=== PATIENT | female | born 1985 | race African-American/Black ===

== ENCOUNTER 2019-07-23 19:40 | Emergency (ER) | payer SELFPAY ==
[2019-07-23 19:41] VITALS: BP 116/82; PULSE 81; RESP 18; TEMP 36.6; O2SAT 100; BMI 40.7
--- NOTE | 2019-07-23 20:01 | EKG12_ITS ---
Test Reason : CP Blood Pressure : / mmHG Vent. Rate : 083 BPM Atrial Rate : 083 BPM P-R Int : 178 ms QRS Dur : 086 ms QT Int : 382 ms P-R-T Axes : 047 001 042 degrees QTc Int : 448 ms Normal sinus rhythm Normal ECG Confirmed by GALA DONOHUE, CURTIS ([id number]), photograph editor MAGDA QUINTERO ([id number]) on 07/24/2019 1:47:50 PM Referred By: KIMBERLY Confirmed By:CURTIS CEDEÑO MD
--- NOTE | 2019-07-23 20:03 | ED.DCSUM_ITS ---
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 States the last 20 minutes she has had fluttering in her chest and mild discomfort. Denies dyspnea. Denies nausea. Never had a DVT or PE. No recent travel or surgery. No recent immobilization. No calf pain or swelling. No hemoptysis. She is on no control pills. There is no significant family history of cardiac disease at a young age. Or clotting disorder. Physical Examination: Young female no acute distress vital signs are stable and afebrile. Pulse ox 9% on room air no signs hypoxia. Initial blood pressure 116/82. HEENT exam normal. Neck nontender. Lungs clear to auscultation bilaterally. Heart regular rhythm no murmur rate about 80. Chest wall nontender. Abdomen soft nontender normal bowel sounds no peritoneal signs. Extremities moves all 4. Equal symmetrical radial pulses. Calves are nontender without edema or cords. Normal motor strength both upper and lower extremities. Back nontender. Neurologically she is awake and alert with no focal motor deficits. Test Results: EKG shows a normal sinus rhythm rate 83 with no acute signs of IN or ischemia. No S1Q3T3. BC normal. Chemistries normal. Troponin normal. Chest x-ray portable 1 view no acute abnormality. Normal cardiac silhouette mediastinum. Read both by myself and the radiologist. Emergency Department Course and Treatment: Patient undergo a cardiac work-up. Clinically I do not think this is a blood clot nor do I think its cardiac in etiology. Repeat exam patient is doing well at 2115. All her tests were negative. We went over her test results. She will follow-up as an outpatient. Treatment Plan: Tylenol and/or Motrin for pain. Follow-up with her physician Disposition: discharge Impression: Chest pain uncertain etiology This note was generated with [employer] dictation software. It may contain incorrect words, spelling, and punctuation that were not noted in review of the chart prior to signing
--- NOTE | 2019-07-23 20:05 | ED.RN ---
NO OLD EKGS IN MUSE
--- NOTE | 2019-07-23 20:10 | RAD_ITS ---
HISTORY: CHEST PAIN EXAM: XR Chest 1 View: COMPARISON: None FINDINGS: # of images incl. paperwork: 1 Lungs are clear. Heart is not enlarged. No acute osseous pathology perceived. Pulmonary vascularity is distinct. No effusions. RAD/Chest 1 View (Portable) IMPRESSION: Normal. at 2032 Reported and signed by: Calvin Otero MD Electronically Signed: Calvin Otero MD at 20:31 EDT Tel , Service support ,
[2019-07-23 20:29] LABS: Absolute Lymphocyte Count 3.08 X10^3/uL (0.83-4.51); Absolute Neutrophil Count 5.2 X10^3/uL (2.0-7.7); Basophil# 0.04 X10^3/uL; Basophil% 0.4 % (0-1); Eosinophil# 0.06 X10^3/uL; Eosinophils% 0.7 % (0-5); Hematocrit 37.5 % (37-47); Hemoglobin 12.7 g/dL (12.0-15.0); Lymphocyte # 3.08 X10^3/ul (4.0); Lymphocyte % 34.3 % (19-41); Mean Corp Hgb Conc 33.9 g/dL (32-36); Mean Corpuscular Hgb 31.4 pg (27.0-32.0); Mean Corpuscular Volume 92.6 fL (81-99); Mean Platelet Vol. 8.5 fl (6.2-12.0); Monocyte# 0.56 X10^3/uL; Monocyte% 6.2 % (0-10); NRBC Flagged by Analyzer 0 % (0-5); Neutrophil # 5.22 X10^3/uL (2.7-7.7); Neutrophil % 58.2 % (47-70); Platelet Count 358 K/mm3 (150-450); RBC Distribution Width CV 12.4 % (11.6-14.6); RBC Distribution Width SD 42.3 fl (35.1-43.9); Red Blood Count 4.05 M/mm3 (4.2-5.4)
[2019-07-23 20:54] LABS: Anion Gap 6 (5-15); BUN 16 mg/dL (7-18); BUN/Creat Ratio 20.6 RATIO (10-20); Calcium,Total 8.8 mg/dL (8.5-10.1); Chloride 111 mmol/L (98-107); Creatinine, Serum 0.78 mg/dL (0.55-1.02); EST Glomerular Filtration Rate 91 mL/min (>60); Est Glom Filt Rate - Afr Amer 110 mL/min (>60); Estimated Creatinine Clearance 93.17 ml/min; Glucose 89 mg/dL (74-106); Potassium 3.7 mmol/L (3.5-5.1); Sodium Level 140 mmol/L (136-145)
--- NOTE | 2019-07-23 21:17 | ED.DEP ---
ED Disposition - Plan for ED Patient: Disposition: Home or Assisted Living Instructions: CHEST PAIN, Uncertain Cause Referrals: Care Physician,No Primary [Primary Care Provider] - 1 Week if not improving Additional Instructions: All your tests were normal follow-up with your doctor.
[2019-07-23 21:21] VITALS: BP 111/73; PULSE 80; RESP 18; O2SAT 97
== END 2019-07-23 21:22 | disposition home or self-care (01) ==
PROVIDERS: Emergency Provider Emergency Medicine
DX: R07.89 Other chest pain (principal); D49.7 Neoplasm of unspecified behavior of endocrine glands and other parts of nervous system; Z79.899 Other long term (current) drug therapy
CPT/HCPCS: 36415; 71045; 80048; 84484; 85025; 93005; 99285; A4216

== ENCOUNTER 2019-12-03 10:29 | Emergency (ER) | payer SELFPAY ==
[2019-12-03 10:31] VITALS: BP 134/63; PULSE 79; RESP 16; TEMP 36.4; O2SAT 100; BMI 40.7
[2019-12-03 11:06] LABS: Absolute Lymphocyte Count 2.61 X10^3/uL (0.83-4.51); Absolute Neutrophil Count 5.1 X10^3/uL (2.0-7.7); Basophil# 0.03 X10^3/uL; Basophil% 0.4 % (0-1); Eosinophil# 0.08 X10^3/uL; Hemoglobin 12.4 g/dL (12.0-15.0); Lymphocyte # 2.61 X10^3/ul (4.0); Lymphocyte % 31.1 % (19-41); Mean Corp Hgb Conc 34.4 g/dL (32-36); Mean Corpuscular Hgb 31.5 pg (27.0-32.0); Mean Corpuscular Volume 91.4 fL (81-99); Mean Platelet Vol. 9.3 fl (6.2-12.0); Monocyte# 0.53 X10^3/uL; Monocyte% 6.3 % (0-10); NRBC Flagged by Analyzer 0 % (0-5); Neutrophil % 60.6 % (47-70); Platelet Count 367 K/mm3 (150-450); RBC Distribution Width CV 12.9 % (11.6-14.6); RBC Distribution Width SD 42.8 fl (35.1-43.9); Red Blood Count 3.94 M/mm3 (4.2-5.4); White Blood Count 8.4 K/mm3 (4.4-11.0)
[2019-12-03] MEDS: 0.9% Normal Saline 1,000 ML 150 ML IV (11:10)
[2019-12-03 11:19] LABS: Anion Gap 8 (5-15); BUN 18 mg/dL (7-18); BUN/Creat Ratio 24.6 RATIO (10-20); Calcium,Total 8.5 mg/dL (8.5-10.1); Chloride 116 mmol/L (98-107); Creatinine, Serum 0.73 mg/dL (0.55-1.02); EST Glomerular Filtration Rate 97 mL/min (>60); Est Glom Filt Rate - Afr Amer 118 mL/min (>60); Estimated Creatinine Clearance 99.55 ml/min; Glucose 101 mg/dL (74-106); Potassium 3.2 mmol/L (3.5-5.1); Sodium Level 144 mmol/L (136-145)
[2019-12-03 11:28] VITALS: BP 117/77; PULSE 70; RESP 11; O2SAT 100
--- NOTE | 2019-12-03 11:32 | ED.VISSUMM ---
- ER Visit Summary Date of Service: 12/03/19 Chief Complaint: Cough History of Present Illness: The patient is a 34 F with no primary care physician. She reports that she has a cough that began 3 days ago. Is productive of green sputum without blood. She denies any fever or chills. She does report that she has mild shortness of breath. States that this lasts 4 to 5 seconds. She is not experiencing this now. She denies wheezing. She does not smoke. Patient reports that she is very careful when she goes out. She wears a mask. She has been isolating as much as possible. She does not have a known exposure to COVID-19. She reports that she has had diffuse myalgias. She denies any change in sense of smell or taste. She reports she has a chronic headache that is unchanged. Patient relates this to the fact that her septic tank broke 3 days ago and she has been working on cleaning this up. This is when she started getting sick. Physical Examination: Vitals: Stable. Afebrile. General: Well-nourished and well-developed. Head: Normocephalic atraumatic. Neck: Supple, no lymphadenopathy. No JVD. Nontender. Cardiovascular: Regular rate and rhythm. No murmurs. Respiratory: No respiratory distress. Clear to auscultation bilaterally. Abdominal: Soft, nontender, nondistended, normal bowel sounds. No guarding, rebound, or peritoneal signs. Back: Nontender. Extremities: Nontender, no edema. Skin: Normal color, no rash. Neurologic: Alert and oriented ?3. Cranial nerves II through XII are intact. Normal strength and sensation. Psych: Normal affect. Test Results: CBC shows hematocrit 36.0. Chem-7 shows potassium 3.2, chloride 116, CO2 of 20. Clinical Impression(s) from Imaging Studies Chest X-Ray 12/03/19 11:36 IMPRESSION: Normal x-ray examination of the chest. Electronically Signed: Star Ríos MD at 11:51 EDT , Service support , Emergency Department Course and Treatment: Patient is resting comfortably without complaint. Treatment Plan: Patient will be discharged with quarantine instructions. She does understand that this could potentially be COVID-19. Follow-up Dr. Cerda in 2 weeks if not improving. She is also given the phone number for Dr. Srivastava to establish a neurologist in the area. Return to the emergency department for any worsening symptoms. Disposition: To home in improved and stable condition. Impression: 1. URI. 2. History of pseudotumor cerebri. This note was generated with [employer] dictation software. It may contain incorrect words, spelling, and punctuation that were not noted in review of the chart prior to signing ED Disposition - Plan for ED Patient: Instructions: ED Upper Resp Infec No Abx Tx Referrals: Dalton Srivastava MD [STAFF PHYSICIAN] - 10-14 Days if not better Varsha Cerda DO [STAFF PHYSICIAN] - 10-14 Days if not better
--- NOTE | 2019-12-03 11:36 | RAD_ITS ---
STUDY: X-RAY CHEST REASON FOR EXAM: Female, 34 years old. SHORT OF BREATH, COUGH TECHNIQUE: PA and lateral views of the chest. COMPARISON: 07/23/2019 FINDINGS: EKG leads overlie the chest The lungs are clear and expanded. There is no demonstrated pleural abnormality. Normal size heart. Normal mediastinum and lamin. Normal visualized pulmonary arteries. Normal visualized aortic arch and descending thoracic aorta. Normal visualized thoracic spine. Normal visualized ribs, clavicles, and shoulders. There is no demonstrated abnormality of the visualized soft tissue structures of the upper abdomen. RAD/Chest PA and Lateral IMPRESSION: Normal x-ray examination of the chest. Electronically Signed: Star Ríos MD at 11:51 EDT , Service support ,
== END 2019-12-03 12:56 | disposition home or self-care (01) ==
LOC: ED 12:01
PROVIDERS: Emergency Provider Emergency Medicine
DX: J06.9 Acute upper respiratory infection, unspecified (principal); R06.02 Shortness of breath; R11.2 Nausea with vomiting, unspecified; R19.7 Diarrhea, unspecified; G93.2 Benign intracranial hypertension
CPT/HCPCS: 71046; 80048; 85025; 87635; 96360; 96361; 99284; G2023; J7030; A4216; U0003

== ENCOUNTER 2020-04-29 10:08 | Emergency (ER) | payer SELFPAY ==
[2020-04-29 10:11] VITALS: BP 150/135; PULSE 79; RESP 16; TEMP 36.6; O2SAT 100; BMI 39.6
--- NOTE | 2020-04-29 10:33 | EKG12_ITS ---
Test Reason : SOB Blood Pressure : / mmHG Vent. Rate : 097 BPM Atrial Rate : 097 BPM P-R Int : 162 ms QRS Dur : 088 ms QT Int : 394 ms P-R-T Axes : 038 004 033 degrees QTc Int : 500 ms Normal sinus rhythm Nonspecific T wave abnormality Prolonged QT Abnormal ECG Confirmed by SIRISHA DONOHUE, SHELLY ([id number]), health editor ROHAN MAI ([id number]) on 05/07/2020 10:01:22 AM Referred By: ELOY/SEVERO Confirmed By:MARIA LUISA GRIMM MD
--- NOTE | 2020-04-29 10:34 | ED.DCSUM_ITS ---
History of Present Illness Chief Complaint: Shortness of Breath Informant: Patient Narrative: Patient is a 35-year-old female with a past medical history of pseudotumor cerebri who presents to the emergency department for shortness of breath. She states that this has been ongoing intermittently for years but never has been this bad. Over the past week she is becoming increasingly short of breath and she gets worse whenever she takes her Diamox. Stop this cold turkey because of this. She did contact her doctor to let them know and they said that this is most likely not from the Diamox. He does get a chest tightness but denies any significant chest pain. She has had a baseline cough without production of any sputum. No fevers or chills. She has any nausea vomiting or diarrhea. No leg swelling or calf pain. She denies any history of DVT/PE. No history of lung problems. Past Medical History - Allergies and Home Meds Allergies/Adverse Reactions: Allergies DUST Allergy (Uncoded 12/03/19 10:30) Shortness of breath Primary Care Physician: Care Physician,No Primary [Primary Care Provider] - As soon as possible Prior records reviewed: Yes Smoking Status: Current some day smoker Review of Systems All systems negative except as indicated General: Denies: Chills, Fever, Sweats Eyes: Denies: Visual changes - bilaterally, Diplopia ENT: Denies: Rhinorrhea, Sore throat Cardiovascular: Denies: Chest pain, Palpitations Respiratory: Reports: Dyspnea, Cough. Denies: Dyspnea on exertion Gastrointestinal: Denies: Abdominal pain, Nausea, Vomiting, Diarrhea Genitourinary: Denies: Dysuria, Hematuria, Frequency Musculoskeletal: Denies: Back pain, Extremity Pain Skin: Denies: Rash, Wounds Neurological: Denies: Headache, Weakness, Numbness Physical Exam Vital Signs/Narrative: Vital Signs Temp Pulse Resp BP Pulse Ox 04/29/20 10:11 97.8 F 79 16 150/135 H 100 General: Well nourished, Well developed, No Acute Distress Head: Normocephalic, Atraumatic Eyes: Perrl, EOMI ENT: Moist mucous membranes, No rhinorrhea Neck: Supple, Nontender Cardiovascular: Regular rate, Regular rhythm, No murmurs Respiratory: No distress, CTA bilaterally, Chest nontender Abdomen: Soft, Nontender, Nondistended, Normal bowel sounds Back: Nontender, Normal Inspection Extremities: Nontender, No edema. Negative for: Calf Tenderness Skin: Normal color, No rash Neurological: Alert, Oriented x3, Cranial nerves II-XII grossly intact, Normal Strength, Normal Sensation Psychological: Normal affect, Normal Mood Diagnostic/Tx/Re-eval Chest X-Ray - ED: - - X-ray single view portable interpreted by myself. Clear lung graham bilaterally. No evidence of consolidation. Normal cardiac silhouette. Normal mediastinum. Agree with radiologist interpretation. - EKG Initial EKG Interpretation: - - Rate of 97 bpm and normal sinus rhythm. QTC of 500. Normal axis. No significant ST elevations or depressions. No T wave abnormalities. - Medical Decision Making Patient presents to the ED for shortness of breath. Upon arrival to the emergency department vital signs within normal limits. She is not tachycardic. Satting 100% on room air. Does not have any increased work of breathing. She is blaming her Diamox although this started before the Diamox and got worse when taking it. She has stopped taking it because of this. We will check basic lab work, EKG and chest x-ray. Patient's lab work did not reveal a significant acute abnormality except her D- dimer was mildly elevated. CTA was performed. No evidence of PE or aortic dissection. Have a great explanation for the cause of her intermittent shortness of breath. She has not been tachypneic and has never desaturated throughout ED stay. She is requesting albuterol inhaler she is to use this as a child. She states that she has worsening symptoms whenever she smokes marijuana and on days she does not smoke she does feel better. I advised her to stop smoking and see how she feels and if she feels better she should discontinue this indefinitely. She is to follow-up with her PCP. Did advise her to get back on the acetazolamide as prescribed. She understands and is agreeable this plan. She is discharged home in stable condition. ED Disposition - Plan for ED Patient: Disposition: Home or Assisted Living Diagnosis: Dyspnea Instructions: ED Dyspnea Prescriptions: Albuterol Inhaler [Ventolin Hfa] 1 puff INHALATION Q6H PRN PRN #1 inhaler PRN Reason: Dyspnea/Wheezing/Sob Transmission Status: Received by [facility]/pharmacy #[id number] Referrals: Care Physician,No Primary [Primary Care Provider] - As soon as possible
--- NOTE | 2020-04-29 10:51 | RAD_ITS ---
STUDY: X-RAY CHEST REASON FOR EXAM: Female, 35 years old. SOB/DYSPNEA TECHNIQUE: Single AP portable view of the chest. COMPARISON: Comparison is made with prior study dated 12/03/2019. FINDINGS: EKG electrodes are seen. The lungs are clear and expanded. There is no demonstrated pleural abnormality. Normal size heart. Normal mediastinum and lamin. Normal visualized pulmonary arteries. Normal visualized aortic arch and descending thoracic aorta. Normal visualized thoracic spine. Normal visualized ribs, clavicles, and shoulders. There is no demonstrated abnormality of the visualized soft tissue structures of the upper abdomen. RAD/Chest 1 View (Portable) IMPRESSION: Normal x-ray examination of the chest. Electronically Signed: Chema Colin, at 11:15 EST , Service support ,
[2020-04-29 11:15] LABS: Absolute Lymphocyte Count 2.47 X10^3/uL (0.83-4.51); Absolute Neutrophil Count 5.4 X10^3/uL (2.0-7.7); Basophil# 0.04 X10^3/uL; Basophil% 0.5 % (0-1); Eosinophil# 0.06 X10^3/uL; Eosinophils% 0.7 % (0-5); Hemoglobin 12.5 g/dL (12.0-15.0); Lymphocyte # 2.47 X10^3/ul (4.0); Lymphocyte % 29.2 % (19-41); Mean Corp Hgb Conc 33.8 g/dL (32-36); Mean Corpuscular Hgb 31.2 pg (27.0-32.0); Mean Corpuscular Volume 92.3 fL (81-99); Mean Platelet Vol. 9.5 fl (6.2-12.0); Monocyte# 0.46 X10^3/uL; Monocyte% 5.4 % (0-10); NRBC Flagged by Analyzer 0 % (0-5); Neutrophil # 5.41 X10^3/uL (2.7-7.7); Platelet Count 361 K/mm3 (150-450); RBC Distribution Width CV 12.5 % (11.6-14.6); Red Blood Count 4.01 M/mm3 (4.2-5.4); White Blood Count 8.5 K/mm3 (4.4-11.0)
[2020-04-29 11:20] LABS: D-Dimer Quantitative (DVT/PE) 0.67 FEU/ug/m (0.27-0.49)
--- NOTE | 2020-04-29 11:24 | CT_ITS ---
STUDY: CTA CHEST REASON FOR EXAM: Female, 35 years old. SOB X 5 DAYS RADIATION DOSAGE (If Supplied By Facility): CTDIvol = ( 15.04 ) mGy, DLP = ( 541.33 ) mGycm TECHNIQUE: The examination was performed with the intravenous administration of IV 100mL Isovue-370. Post-processing of the angiographic images was performed, with multiplanar reformation and 3D reconstruction. Individualized dose optimization techniques were used for this CT. COMPARISON: None. FINDINGS: Normal enhancement of the main pulmonary artery and right and left pulmonary arteries. Normal enhancement of the bilateral peripheral pulmonary arteries. There is no demonstrated pulmonary embolism. Normal thoracic aorta and visualized great vessels. There is no demonstrated aortic dissection. Normal heart and pericardium. Normal mediastinum. Normal hilar regions. Normal visualized trachea and bronchi. The lungs are well expanded. Normal pulmonary parenchyma. Normal pleura. Normal chest wall structures. Normal osseous structures. Normal visualized upper abdomen. CT/CTA Chest W/WO Contrast IMPRESSION: Normal CTA chest examination, without a demonstrated pulmonary embolism or arterial dissection. Electronically Signed: Chema Colin, at 13:09 EST , Service support ,
[2020-04-29 11:33] LABS: Anion Gap 7 (5-15); BUN 10 mg/dL (7-18); BUN/Creat Ratio 13.9 RATIO (10-20); Calcium,Total 8.7 mg/dL (8.5-10.1); Chloride 110 mmol/L (98-107); Creatinine, Serum 0.72 mg/dL (0.55-1.02); EST Glomerular Filtration Rate 99 mL/min (>60); Est Glom Filt Rate - Afr Amer 120 mL/min (>60); Estimated Creatinine Clearance 104.04 ml/min; Glucose 119 mg/dL (74-106); Potassium 3.3 mmol/L (3.5-5.1); Sodium Level 143 mmol/L (136-145)
[2020-04-29 12:15] VITALS: PULSE 71; RESP 18; O2SAT 97
[2020-04-29 12:35] LABS: Internal QC Validated? YES +Cl - CLEAR BKGD; Pregnancy, Urine Negative Negative
[2020-04-29 15:21] VITALS: BP 152/87; PULSE 89; RESP 18; O2SAT 98
== END 2020-04-29 15:22 | disposition home or self-care (01) ==
PROVIDERS: Emergency Provider Emergency Medicine
DX: R06.00 Dyspnea, unspecified (principal); R05 Cough; R07.89 Other chest pain; R79.89 Other specified abnormal findings of blood chemistry; G93.2 Benign intracranial hypertension; Z79.899 Other long term (current) drug therapy; F17.200 Nicotine dependence, unspecified, uncomplicated
CPT/HCPCS: 71045; 71275; 80048; 81025; 84484; 85025; 85379; 93005; 99285; Q9967; A4216

== ENCOUNTER 2020-04-30 22:09 | Emergency (ER) | payer SELFPAY ==
[2020-04-29 10:11] VITALS: BMI 39.6
[2020-04-30 21:57] VITALS: BP 137/85; PULSE 100; RESP 16; TEMP 36; O2SAT 100; BMI 38.9
--- NOTE | 2020-04-30 22:26 | CT_ITS ---
STUDY: CT BRAIN WITHOUT CONTRAST REASON FOR EXAM: Female, 35 years old. PSEUDOTUMOR/OVALLES TODAY RADIATION DOSAGE (If Supplied By Facility): CTDIvol = ( 44.99 ) mGy, DLP = ( 889.13 ) mGycm TECHNIQUE: Transaxial CT imaging of the brain was performed without administration of intravenous contrast material. Individualized dose optimization techniques were used for this CT. COMPARISON: No relevant priors. FINDINGS: Normal soft tissue structures. Normal calvarium. Normal size ventricles and extra-axial spaces for the patient''s age. Normal white matter tracts of the cerebral hemispheres. Normal basal ganglia and thalami. Normal brainstem. Normal cerebellum. There is no intracranial hemorrhage. There are no findings of an acute ischemic infarction. Normal visualized paranasal sinuses. CT/Brain/Head without Contrast IMPRESSION: Normal unenhanced CT scan of the brain. Electronically Signed: Irene Pearce MD at 22:46 EST , Service support ,
--- NOTE | 2020-04-30 22:27 | ED.VIS.GEN ---
History of Present Illness Chief Complaint: General Illness Narrative: This patient is a 35-year-old female with a history of pseudotumor cerebri and a pineal tumor who presents with speech difficulty. She was seen yesterday for shortness of breath. She was told she may have anxiety. She was concerned that her shortness of breath was related to her Diamox and was advised that this was likely not the case. She states they found a gas leak in her home and did shut off the gas. She states that her speech is not right. She also complains of tingling in both of her legs. She does complain of some headaches. No visual changes. No vomiting. Past Medical History - Allergies and Home Meds Allergies/Adverse Reactions: Allergies DUST Allergy (Uncoded 12/03/19 10:30) Shortness of breath Primary Care Physician: Care Physician,No Primary [Primary Care Provider] - Past Medical History: - - Pseudotumor cerebri Smoking Status: Light Smoker (<10/day) Review of Systems All systems negative except as indicated General: Denies: Fever Eyes: Denies: Visual changes - bilaterally ENT: Denies: Bilateral ear pain Cardiovascular: Denies: Chest pain Respiratory: Denies: Dyspnea Gastrointestinal: Denies: Abdominal pain, Nausea, Vomiting Neurological: Reports: Headache, Parasthesia, - - Speech difficulty Hematologic: Denies: Easy bruising Allergy: Denies: Uticaria Physical Exam Vital Signs/Narrative: Vital Signs Temp Pulse Resp BP Pulse Ox 04/30/20 21:57 96.8 F L 100 16 137/85 H 100 Inital Vital Signs reviewed: Yes General: Well nourished Head: Normocephalic, Atraumatic Eyes: Perrl ENT: Moist mucous membranes Neck: Supple Cardiovascular: Regular rate, Regular rhythm Respiratory: No distress, CTA bilaterally Abdomen: Soft Neurological: Alert, Oriented x3, - - Patient complains of decreased sensation to light touch in both legs which is symmetric, she has no focal or lateralizing neurological deficits, she has no dysarthria or aphasia, she speaks slowly and loudly clearly enunciating each word Psychological: Normal affect Diagnostic/Tx/Re-eval - Medical Decision Making Patient's speech difficulty is basically just speaking loudly and slowly clearly enunciating each word. She stutters at times as well. She does not have aphasia. She does not have dysarthria. This may be psychiatric in nature. I do believe there is a component of anxiety. She complains of paresthesias in both legs and tingling in her tongue. She does not have any lateralizing neurological deficit. CT of the head is normal. Patient was reassured. Patient is tearful. She states no one will listen to her. Of note when she is upset her speech was completely clear. I recommended that she restart her Diamox. However she states whenever she takes that she feels short of breath and feels a pressure in her head. She was advised that if she has an intolerance they may be able to pursue a different medication regimen and I recommended that she contact her neurosurgeon. She states that they have not been helping her. I offered to give her a referral to a neurologist. She was advised on signs and symptoms to monitor for that should prompt return here to the emergency department otherwise to follow-up as an outpatient and she was discharged. At this time I do not see evidence of acute life-threatening pathology or an indication for hospitalization. I did recommend that she continue to pursue outpatient evaluation. ED Disposition - Plan for ED Patient: Disposition: Home or Assisted Living Diagnosis: Pseudotumor cerebri Referrals: Care Physician,No Primary [Primary Care Provider] - Dalton Srivastava MD [STAFF PHYSICIAN] -
[2020-04-30 23:02] VITALS: BP 134/99; PULSE 83; RESP 16; O2SAT 98
== END 2020-04-30 23:10 | disposition home or self-care (01) ==
PROVIDERS: Emergency Provider Emergency Medicine
DX: G93.2 Benign intracranial hypertension (principal); R20.2 Paresthesia of skin; Z79.899 Other long term (current) drug therapy; F17.200 Nicotine dependence, unspecified, uncomplicated
CPT/HCPCS: 70450; 99284

== ENCOUNTER 2020-11-19 18:01 | Emergency (ER) | payer MEDICAID, SELFPAY ==
[2020-11-19 18:02] VITALS: BP 119/78; PULSE 98; RESP 18; TEMP 35.9; O2SAT 95; BMI 39.9
--- NOTE | 2020-11-19 18:07 | EKG12_ITS ---
Test Reason : CP/LEG PAIN Blood Pressure : / mmHG Vent. Rate : 095 BPM Atrial Rate : 095 BPM P-R Int : 150 ms QRS Dur : 090 ms QT Int : 360 ms P-R-T Axes : 040 012 039 degrees QTc Int : 452 ms Normal sinus rhythm Normal ECG Confirmed by SIENA DONOHUE, DEB ([id number]), film editor supervisor ROHAN MAI ([id number]) on 11/24/2020 12:56:45 PM Referred By: JONI/LISETH Confirmed By:DEB WREN MD
--- NOTE | 2020-11-19 18:35 | RAD_ITS ---
HISTORY: cp EXAMINATION/TECHNIQUE: XR Chest 1 View: Portable upright AP chest x-ray COMPARISON: 04/29/20 FINDINGS: LINES/DEVICES: None. LUNGS: No consolidation, edema or effusion. No pneumothorax. MEDIASTINUM AND CARDIOVASCULAR STRUCTURES: Cardiac silhouette not enlarged. Central airways and mediastinal contour are unremarkable. BONES AND SOFT TISSUES: No acute bony abnormalities. RAD/Chest 1 View (Portable) IMPRESSION: No radiographic evidence of acute cardiopulmonary disease. at 1910 Reported and signed by: Dirk Obregon MD Electronically Signed: Dirk Obregon MD at 19:09 EDT Tel , Service support ,
[2020-11-19 19:05] VITALS: PULSE 84; RESP 20; O2SAT 99
--- NOTE | 2020-11-19 19:10 | ED.VIS.CHEST ---
HPI History of Present Illness Chief Complaint: Chest Pain Informant: patient Onset/Context/Timing Onset: Days (3) Activity at onset: sudden and onset (Today while walking. Random at other days.) Timing: Intermittent and Lasts (Several seconds) Quality: Positive for Sharp Location: Substernal (Lower retrosternal without radiation) Current Severity: Gone Maximum Severity: Severe Worsened By: Breathing (Sometimes) Relieved By: Nothing (Goes away on its own) Associated Symptoms: Negative for Nausea, Vomiting, Diaphoresis, Dyspnea, Cough and Palpitations Narrative Narrative: Patient states for the past week or so she has had spontaneous onset of what look like bruises on her right leg that been sore and they were blue. Now the color looks more like just darkly pigmented skin and there are no longer blue. She has a larger area just distal to this medial right calf that is more sore. She states today's both of her legs were really hurting earlier, but now it is really just the right. She also describes intermittent chest pain she is having over the last couple days. She states she is sedentary, she works from home online, but she gets around without any difficulty. She denies any known history of blood clots. PE Risk Factors: Negative for Recent Travel/Surgery, Recent Immobilization, Prior DVT or PE, Cancer and OCP + Smoking + >/=35 PFSH PFSH Medical History Brain tumor Increased intracranial pressure Home Medications albuterol sulfate 1 puff INHALATION Q6H PRN PRN #1 inhaler 04/29/20 [Rx Last Taken Unknown] omeprazole 20 mg PO DAILY #14 capsule 11/19/20 [Rx Last Taken Unknown] Allergy/AdvReac Type Severity Reaction Status Date / Time DUST Allergy Shortness Uncoded 11/19/20 18:05 of breath Social History Smoking Status: Never smoker ROS ROS ED Constitutional Constitutional ED: Denies chills or fever(s) Eyes Eyes: Denies change in vision or diplopia ENT ENT ED: Denies rhinorrhea or sore throat Cardiovascular Cardiovascular: Reports as per HPI and chest pain; Denies palpitations Respiratory/Chest Respiratory/Chest: Denies cough or dyspnea Gastrointestinal Gastrointestinal: Denies abdominal pain, diarrhea, nausea or vomiting Genitourinary Genitourinary ED: Denies dysuria or hematuria Musculoskeletal Musculoskeletal: Reports as per HPI and extremity pain; Denies back pain or neck pain Integumentary Denies abscess or rash Neurologic Neurologic: Reports headache(s) and other Details: Patient states she has headaches 06/12, they are usually manageable, 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 that is being monitored by specialists ; Denies paresthesias or weakness Psychiatric Psychiatric: Denies anxiety or suicidal thoughts Hematologic/Lymphatic Hematologic/Lymphatic: Reports as per HPI and easy bruising; Denies easy bleeding EXAM Physical Exam Const Vital Signs: 11/19/20 18:02 11/19/20 19:05 11/19/20 22:05 Temperature 96.6 F L Temperature Source Temporal Pulse Rate 98 84 67 Respiratory Rate 18 20 H 20 H Blood Pressure 119/78 111/75 Blood Pressure Mean 91 87 Pulse Ox 95 99 99 Oxygen Delivery Method Room Air Room Air Positive well nourished and well developed General Appearance ED: well developed and NAD HEENT Reports moist mucous membranes normocephalic and atraumatic Eyes PERRL and EOMs intact bilaterally Neck full ROM and supple Resp normal respiratory effort and clear to auscultation bilaterally Cardio regular rate, regular rhythm and no murmurs GI non-tender and non-distended Auscultation: normoactive bowel sounds Palpation: soft Back/Spine no CVA tenderness General Back: other FROM Extremity normal to inspection Extremity Narrative: Tenderness right calf. Several areas with hyperpigmented tender skin but no erythema or lymphangitis or signs of infection/abscess. No palpable cords. Full range of motion and neurovascularly intact. General Extremety ED: Negative for edema or pulses abnormal General Extremity: Negative for edema or pulses abnormal Neuro oriented x3, CN's II-XII intact bilaterally and no sensory deficits noted Sensorium / Orientation: awake and alert Motor Exam: strength 5/5 throughout Psych Psych Narrative: Anxious otherwise normal. Skin no rashes or lesions noted and no wounds Heart Score History: Slightly/Non-Suspicious ECG: Normal Age: </= 45 years Risk Factors: No Risk Factors Troponin: </= Normal Limit Score: 0 MDM MDM MDM Narrative Medical decision making narrative: Venous ultrasound of the right lower extremity was obtained given her tender calf and other areas, it was negative for DVT or SVT or any other incidental pertinent finding other than minor resolving contusions. Her D-dimer was elevated, and given her chest symptoms CT angiography of the chest was obtained and as below shows no acute pulmonary embolus or other pathology. Her testing is noted and negative including high-sensitivity troponin. She had no significant recurrence of her chest discomfort. On further discussion, she states that when she applied her bra it seemed to hurt her chest more and it eased up when she would take it off, suggesting a possible musculoskeletal component. We also discussed possibility of reflux, esophageal spasm, and I recommend trying to 2-week course of a PPI and following up with her doctor. She is comfortable with that plan. Lab Data Attestation: I reviewed the patient's lab results. Labs: Laboratory Results - last 24 hr 11/19/20 11/19/20 11/19/20 19:45 19:45 19:45 WBC 9.3 RBC 4.25 Hgb 13.1 Hct 38.7 MCV 91.1 MCH 30.8 MCHC 33.9 RDW Std Deviation 43.4 RDW Coeff of Marsha 13.1 Plt Count 370 MPV 9.1 Immature Gran % (Auto) 0.300 Neut % (Auto) 75.1 H Lymph % (Auto) 16.5 L Jerome % (Auto) 6.6 Eos % (Auto) 1.1 Baso % (Auto) 0.4 Absolute Neuts (auto) 7.0 Absolute Lymphs (auto) 1.54 Nucleated RBC % 0 D-Dimer Quant (PE/DVT) 0.69 H* Sodium 140 Potassium 3.3 L Chloride 113 H Carbon Dioxide 21.0 Anion Gap 6 BUN 15 Creatinine 0.92 Estim Creat Clear Calc 78.26 Est GFR (MDRD) Af Amer 90 Est GFR (MDRD) Non-Af 74 BUN/Creatinine Ratio 16.3 Glucose 90 Calcium 8.7 Troponin I High Sens 4.2 Radiography Diagnostic Testing: Radiology Impression Chest X-Ray 11/19/20 18:35 IMPRESSION: No radiographic evidence of acute cardiopulmonary disease. at 1910 Reported and signed by: Dirk Obregon MD Electronically Signed: Dirk Obregon MD at 19:09 EDT Tel , Service support , Venous Duplex 11/19/20 19:12 IMPRESSION: No sonographic evidence of deep venous thrombosis. Probable lipoma or hematoma in the medial calf, area of palpable abnormality. at 2027 Reported and signed by: Dirk Obregon MD Electronically Signed: Dirk Obregon MD at 20:26 EDT Tel , Service support , Chest CTA 11/19/20 20:36 IMPRESSION: Suboptimal opacification of the pulmonary arteries. There is no central or hilar pulmonary embolism, but the primary segmental and secondary subsegmental branches cannot be evaluated. If symptomatology persists, either a repeat study or V/Q scan should be considered. No acute pulmonary findings. Individualized dose optimization techniques were used for this CT. at 2127 Reported and signed by: Dirk Obregon MD Electronically Signed: Dirk Obregon MD at 21:26 EDT Tel , Service support , EKG Initial EKG: Attestation: I personally reviewed and interpreted this EKG as follows: Interpretation: Sinus Rhythm and No Acute Injury Pattern Comments: Normal EKG Prior EKG tracings: available for review Prior: Unchanged Discharge Plan Triage Chief Complaint: Chest Pain ED Provider: Fabian Garcia Dx/Rx/DC Orders Clinical Impression: Acute pain of right lower extremity, Intermittent chest pain Instructions: ED Chest Pain, Noncardiac, ED Muscle Strain, Extremity Prescriptions: New omeprazole [omeprazole] 20 MG capsule 20 mg PO DAILY Qty: 14 RF: 0 No Action albuterol sulfate 1 INHALER inhaler 1 puff INHALATION Q6H PRN PRN (Reason: Dyspnea/Wheezing/Sob) Qty: 1 RF: 0 Primary Care Provider: Care Physician,No Primary Referrals: Doctor,Your [STAFF PHYSICIAN] - 1 Week if not improving Disposition Disposition: Home, Self Care
--- NOTE | 2020-11-19 19:12 | US_ITS ---
HISTORY: RT LOWER LEG PAIN EXAMINATION: US Venous Duplex LE Unilat / Limited: TECHNIQUE: Gallego scale, pulse wave, and color flow Doppler imaging was performed of the lower extremity venous system. The right greater saphenous, common femoral, femoral, popliteal, peroneal and posterior tibial veins were interrogated. COMPARISON: None FINDINGS: # of images incl. paperwork: 23 There is normal compression, augmentation, and color flow signal throughout the visualized deep lower extremity veins. Subcutaneous echogenic nodule in the area of the palpable lump medial right calf measures 2.2 x 1.2 x 0.7 cm. US/Venous Duplex Imag/Limited/Uni IMPRESSION: No sonographic evidence of deep venous thrombosis. Probable lipoma or hematoma in the medial calf, area of palpable abnormality. at 2026 Reported and signed by: Dirk Obregon MD Electronically Signed: Dirk Obregon MD at 20:26 EDT Tel , Service support ,
[2020-11-19 20:11] LABS: Absolute Lymphocyte Count 1.54 X10^3/uL (0.83-4.51); Basophil# 0.04 X10^3/uL; Basophil% 0.4 % (0-1); Eosinophils% 1.1 % (0-5); Hematocrit 38.7 % (37-47); Hemoglobin 13.1 g/dL (12.0-15.0); Lymphocyte # 1.54 X10^3/ul (0.83-4.51); Lymphocyte % 16.5 % (19-41); Mean Corp Hgb Conc 33.9 g/dL (32-36); Mean Corpuscular Hgb 30.8 pg (27.0-32.0); Mean Corpuscular Volume 91.1 fL (81-99); Mean Platelet Vol. 9.1 fl (6.2-12.0); Monocyte# 0.62 X10^3/uL; Monocyte% 6.6 % (0-10); NRBC Flagged by Analyzer 0 % (0-5); Neutrophil # 7.01 X10^3/uL (2.7-7.7); Neutrophil % 75.1 % (47-70); Platelet Count 370 K/mm3 (150-450); RBC Distribution Width CV 13.1 % (11.6-14.6); RBC Distribution Width SD 43.4 fl (35.1-43.9); Red Blood Count 4.25 M/mm3 (4.2-5.4); White Blood Count 9.3 K/mm3 (4.4-11.0)
[2020-11-19 20:24] LABS: Anion Gap 6 (5-15); BUN 15 mg/dL (7-18); BUN/Creat Ratio 16.3 RATIO (10-20); Calcium,Total 8.7 mg/dL (8.5-10.1); Chloride 113 mmol/L (98-107); Creatinine, Serum 0.92 mg/dL (0.55-1.02); EST Glomerular Filtration Rate 74 mL/min (>60); Est Glom Filt Rate - Afr Amer 90 mL/min (>60); Estimated Creatinine Clearance 78.26 ml/min; Glucose 90 mg/dL (74-106); Potassium 3.3 mmol/L (3.5-5.1); Sodium Level 140 mmol/L (136-145); Troponin-I HS 4.2 pg/mL (3.0-53.7)
[2020-11-19 20:27] LABS: D-Dimer Quantitative (DVT/PE) 0.69 FEU/ug/m (0.27-0.49)
--- NOTE | 2020-11-19 20:36 | CT_ITS ---
HISTORY: chest pain, elevated d-dimer EXAMINATION: CTA Chest WO/W Contrast Injection TECHNIQUE: Helically acquired images were obtained of the chest following IV contrast as per pulmonary angiogram protocol with 3D reconstructions. A radiation dose optimization technique was used for this scan. IV Contrast dosage and agent: 100mL [id number]-370 COMPARISON: None FINDINGS: LUNGS, PLEURA AND LARGE AIRWAYS: No masses, consolidation, or edema. No pleural effusion or thickening. No pneumothorax. THYROID: No thyroid lesions. PULMONARY ARTERIES: There is suboptimal opacification of the pulmonary arteries. There is no central or hilar pulmonary embolism. Segmental branch pulmonary embolism cannot be excluded. AORTA AND GREAT VESSELS: Normal in caliber. No evidence of dissection. HEART AND PERICARDIUM: Heart size is normal. No pericardial effusion. MEDIASTINUM AND RJ: No mediastinal or hilar adenopathy. Esophagus is unremarkable. No hiatal hernia. UPPER ABDOMEN: No acute pathology. BONES: Unremarkable. CT/CTA Chest W/WO Contrast IMPRESSION: Suboptimal opacification of the pulmonary arteries. There is no central or hilar pulmonary embolism, but the primary segmental and secondary subsegmental branches cannot be evaluated. If symptomatology persists, either a repeat study or V/Q scan should be considered. No acute pulmonary findings. Individualized dose optimization techniques were used for this CT. at 2127 Reported and signed by: Dirk Obregon MD Electronically Signed: Dirk Obregon MD at 21:26 EDT Tel , Service support ,
[2020-11-19] MEDS: 0.9% Normal Saline 1,000 ML 999 ML IV (21:02)
[2020-11-19 22:05] VITALS: BP 111/75; PULSE 67; RESP 20; O2SAT 99
== END 2020-11-19 22:51 | disposition home or self-care (01) ==
PROVIDERS: Emergency Provider Emergency Medicine
DX: M79.604 Pain in right leg (principal); R07.89 Other chest pain; L81.9 Disorder of pigmentation, unspecified
CPT/HCPCS: 71045; 71275; 80048; 84484; 85025; 85379; 93005; 93971; 96360; 99285; J7030; Q9967; A4216

== ENCOUNTER 2021-04-25 13:54 | Emergency (ER) | payer SELFPAY ==
[2021-04-25 14:13] VITALS: BP 107/58; PULSE 84; RESP 16; TEMP 36.1; O2SAT 97; BMI 40.3
--- NOTE | 2021-04-25 15:33 | RAD_ITS ---
STUDY: X-RAY - PELVIS REASON FOR EXAM: Female, 36 years old. Fall, pain TECHNIQUE: One view of the pelvis was obtained. COMPARISON: None. FINDINGS: There is a non-specific bowel gas pattern. Normal visualized soft tissue structures. Normal bilateral iliac wings, sacroiliac joints and visualized sacrum. Normal visualized bilateral superior and inferior pubic rami. Normal pubic symphysis. Normal ischial tuberosities. Normal visualized right femoral head. Normal right acetabulum. Normal right hip joint. Normal visualized left femoral head. Normal left acetabulum. Normal left hip joint. RAD/Pelvis 1 or 2 Views IMPRESSION: Normal x-ray examination of the pelvis. Electronically Signed: Chuck Grove MD (Brooks) at 16:24 EST , Service support ,
--- NOTE | 2021-04-25 15:33 | CT_ITS ---
STUDY: CT BRAIN WITHOUT CONTRAST REASON FOR EXAM: Female, 36 years old. FELL HITTING HEAD. DENIES LOC. FELT DIZZINESS AFTER GETTING UP. PAIN TO HEAD, CERVICAL SPINE RADIATION DOSAGE (If Supplied By Facility): CTDIvol = ( 44.99 ) mGy, DLP = ( 77.924 ) mGycm TECHNIQUE: Transaxial CT imaging of the brain was performed without administration of intravenous contrast material. Individualized dose optimization techniques were used for this CT. COMPARISON: No relevant priors. FINDINGS: Normal soft tissue structures. Normal calvarium. Normal size ventricles and extra-axial spaces for the patient''s age. Normal white matter tracts of the cerebral hemispheres. Normal basal ganglia and thalami. Normal brainstem. Normal cerebellum. There is no intracranial hemorrhage. There are no findings of an acute ischemic infarction. Normal visualized paranasal sinuses. CT/Brain/Head without Contrast IMPRESSION: Normal unenhanced CT scan of the brain. Electronically Signed: Chuck Grove MD (Brooks) at 16:16 EST , Service support ,
--- NOTE | 2021-04-25 15:33 | RAD_ITS ---
STUDY: X-RAY - THORACIC SPINE REASON FOR EXAM: Female, 36 years old. Fall, pain TECHNIQUE: 3 view(s) of the thoracic spine were obtained. Limited by motion. COMPARISON: None. FINDINGS: Normal kyphosis of the thoracic spine. There is no substantial scoliosis. Normal thoracic vertebrae and endplates. Normal disc space heights. The soft tissue structures are unremarkable. RAD/Thoracic Spine 3 Views IMPRESSION: No obvious fracture or malalignment. Electronically Signed: Chuck Grove MD (Brooks) at 16:25 EST , Service support ,
--- NOTE | 2021-04-25 15:33 | RAD_ITS ---
STUDY: X-RAY - LUMBAR SPINE REASON FOR EXAM: Female, 36 years old. Fall, back pain TECHNIQUE: 3 view(s) of the lumbar spine were obtained. COMPARISON: None FINDINGS: Normal lumbar lordosis. There is no substantial scoliosis. There is a normal alignment of the vertebrae. Normal vertebral bodies and endplates. Normal disc space heights. There is no demonstrated fracture. The soft tissue structures are unremarkable. RAD/Lumbar Spine 2 or 3 Views IMPRESSION: Normal x-ray examination of the lumbar spine. Electronically Signed: Chuck Grove MD (Brooks) at 16:22 EST , Service support ,
--- NOTE | 2021-04-25 15:33 | CT_ITS ---
EXAM: CT CERVICAL SPINE WITHOUT INTRAVENOUS CONTRAST CLINICAL INDICATION: FELL HITTING HEAD. DENIES LOC. FELT DIZZINESS AFTER GETTING UP. PAIN TO HEAD, CERVICAL SPINE TECHNIQUE: Helically acquired images were obtained of the cervical spine without intravenous contrast. 2D reformatted images were reviewed. This CT exam was performed using one or more of the following dose reduction techniques: automated exposure control, adjustment of the mA and/or kV according to patient size, and/or use of iterative reconstruction technique. This report was created using [employer] report [employer] technology. COMPARISON: None. FINDINGS: VERTEBRAE: Unremarkable. No fracture. No traumatic subluxation. No discrete lytic or blastic abnormality. Normal alignment. Normal craniocervical junction and cervicothoracic junction. DISCS/SPINAL CANAL/NEURAL FORAMINA: Unremarkable. Disc heights are preserved. No critical stenosis. SOFT TISSUES: Unremarkable. No prevertebral soft tissue swelling. LYMPH NODES: Unremarkable. No cervical adenopathy. LUNG APICES: Unremarkable as visualized. Clear. CT/Spine Cervical without Contras IMPRESSION: No evidence of acute cervical spinal fracture or spondylolisthesis. Electronically Signed: Chuck Grove MD (Brooks) at 16:26 EST , Service support ,
--- NOTE | 2021-04-25 15:34 | EX.ED.GENINJ ---
HPI History of Present Illness Chief Complaint: Head Injury Informant: patient Onset/Context/Timing Onset: Today Mechanism/Context: Fall and Slip Quality of Pain: - (Pressure) Location: Head neck back and pelvis Worsened by: Nothing Relieved by: Nothing Associated Symptoms Associated Symptoms: Negative for Parasthesias, Weakness, Loss of function, Inability to ambulate, Loss of consciousness and Amnesia Narrative Narrative: Patient presents with head injury that occurred today. Patient states she slipped on a wet floor and hit her head. Patient states that she was seeing stars but did not lose consciousness. Patient states she was confused for a brief second after she fell. Patient states that she had difficulty getting up but has been able to ambulate since the fall. Patient denies any paresthesias or weakness. Patient describes the pain in her head as a pressure. Patient states she has a history of normal pressure hydrocephalus as well as a tumor in her brain. Patient states she also has pain in her neck and back and pelvis. [facility] Medical History (Updated 04/25/21 @ 17:[address] Ben Ortega DO) Brain tumor Increased intracranial pressure Home Medications acetazolamide [Diamox] 250 mg PO TID 04/25/21 [History Last Taken Unknown] Allergy/AdvReac Type Severity Reaction Status Date / Time DUST Allergy Shortness Uncoded 04/25/21 14:18 of breath Surgical History (Updated 04/25/21 @ 15:[address] Ben Ortega DO) Hx of dilation and curettage Social History Smoking Status: Never smoker ROS ROS ED Constitutional Constitutional ED: Denies chills or fever(s) Eyes Eyes: Reports blurry vision ENT ENT ED: Denies rhinorrhea or sore throat Cardiovascular Cardiovascular: Denies chest pain or palpitations Respiratory/Chest Respiratory/Chest: Denies cough or dyspnea Gastrointestinal Gastrointestinal: Reports nausea and vomiting Genitourinary Genitourinary ED: Denies dysuria or hematuria Musculoskeletal Musculoskeletal: Reports back pain and neck pain Integumentary Denies abscess or rash Neurologic Neurologic: Reports headache(s); Denies weakness Allergic/Immunologic Allergic/Immunologic ED: Denies mouth swelling or urticaria EXAM Physical Exam Const Vital Signs: 04/25/21 14:13 04/25/21 15:23 Temperature 97.0 F L Temperature Source Temporal Pulse Rate 84 Respiratory Rate 16 Respiratory Effort Normal Blood Pressure 107/58 L Blood Pressure Mean 74 Pulse Ox 97 Oxygen Delivery Method Room Air Positive well nourished, well developed and obese General Appearance ED: well developed Nutritional Appearance: obese HEENT tenderness Eyes PERRL and EOMs intact bilaterally Neck General: tenderness Resp normal respiratory effort and clear to auscultation bilaterally Cardio regular rhythm Rate: regular rate GI non-tender Palpation: soft Back/Spine Back/Spine Narrative: There is tenderness over the thoracic and lumbar spine. There is also some mild tenderness over the pelvis. There is no bony crepitance or step-off. Range of motion was limited in all motion secondary to pain. Thoracic Spine / Upper Back: thoracic spinal tenderness Extremity normal to inspection and full ROM Neuro oriented x3, CN's II-XII intact bilaterally, moves all extremities, no focal motor deficits and no sensory deficits noted [place] Coma Scale: document GCS findings Spontaneous Obeys Commands Oriented 15 Sensorium / Orientation: alert Psych mental status grossly normal MDM MDM MDM Narrative Medical decision making narrative: Patient was given a dose of Tylenol here. CT scan of the brain was obtained. There is no acute intracranial abnormality noted. CT scan of the cervical spine was obtained. There is no acute fracture or spondylolisthesis. These were interpreted by the radiologist and reviewed by myself. X-rays of the thoracic spine were obtained. There are 3 views. On my interpretation, there is no acute fracture noted. There is no spondylolisthesis noted. Radiologist also interpreted the x-rays and agrees. X-rays of the lumbar spine were obtained. There are 3 views. On my interpretation, there is no acute fracture or spondylolisthesis noted. There is no soft tissue swelling. Radiologist also interpreted the x-rays and agrees. X-rays of the pelvis was obtained. There is 1 view. On my interpretation, there is no acute fracture. There is no apparent ligamentous injury. Radiologist also interpreted the x-rays and agrees. Patient was advised of her findings. Patient was instructed to use ice to the areas. Patient was instructed to follow-up with her primary care physician in 5 to 7 days. Patient was given instructions on head injuries. Patient understood and was agreeable with the plan. All questions were answered. Radiography Diagnostic Testing: Clinical Impression(s) from Imaging Studies Brain CT 04/25/21 15:33 IMPRESSION: Normal unenhanced CT scan of the brain. Electronically Signed: Chuck Grove MD (Brooks) at 16:16 EST , Service support , Cervical Spine CT 04/25/21 15:33 IMPRESSION: No evidence of acute cervical spinal fracture or spondylolisthesis. Electronically Signed: Chuck Grove MD (Brooks) at 16:26 EST , Service support , Lumbar Spine X-Ray 04/25/21 15:33 IMPRESSION: Normal x-ray examination of the lumbar spine. Electronically Signed: Chuck Grove MD (Brooks) at 16:22 EST , Service support , Pelvis X-Ray 04/25/21 15:33 IMPRESSION: Normal x-ray examination of the pelvis. Electronically Signed: Chuck Grove MD (Brooks) at 16:24 EST , Service support , Thoracic Spine X-Ray 04/25/21 15:33 IMPRESSION: No obvious fracture or malalignment. Electronically Signed: Chuck Grove MD (Brooks) at 16:25 EST , Service support , Discharge Plan Triage Chief Complaint: Head Injury ED Provider: Ben Ortega Dx/Rx/DC Orders Clinical Impression: Concussion, Acute thoracic myofascial strain, Acute myofascial strain of lumbosacral region Instructions: ED Back Sprain/Strain, ED Concussion Prescriptions: No Action acetazolamide [Diamox] 250 mg Tablet 250 mg PO TID RF: 0 Primary Care Provider: Care Physician,No Primary Referrals: Care Physician,No Primary [Primary Care Provider] - 3-5 Days Disposition Disposition: Home, Self Care
[2021-04-25] MEDS: Acetaminophen 500 MG Tablet 1000 MG PO (15:40)
[2021-04-25 17:21] VITALS: BP 132/93; PULSE 73; RESP 15
== END 2021-04-25 17:25 | disposition home or self-care (01) ==
PROVIDERS: Emergency Provider Emergency Medicine
DX: S06.0X0A Concussion without loss of consciousness, initial encounter (principal); S29.012A Strain of muscle and tendon of back wall of thorax, initial encounter; S39.012A Strain of muscle, fascia and tendon of lower back, initial encounter; W01.0XXA Fall on same level from slipping, tripping and stumbling without subsequent striking against object, initial encounter; Y93.9 Activity, unspecified; Y92.9 Unspecified place or not applicable; E66.9 Obesity, unspecified; Z68.41 Body mass index [BMI] 40.0-44.9, adult; D49.6 Neoplasm of unspecified behavior of brain; G91.2 (Idiopathic) normal pressure hydrocephalus; Z79.899 Other long term (current) drug therapy
CPT/HCPCS: 70450; 72072; 72100; 72125; 72170; 99282

== ENCOUNTER 2021-05-20 21:58 | Emergency (ER) | payer SELFPAY ==
[2021-05-20 21:58] VITALS: BP 113/96; PULSE 86; RESP 18; TEMP 36.4; O2SAT 100; BMI 41.1
[2021-05-20 22:24] VITALS: BP 113/96; PULSE 86; RESP 18; TEMP 36.4; O2SAT 100
--- NOTE | 2021-05-20 22:57 | EX.ED.VIS.HA ---
HPI History of Present Illness Chief Complaint: Headache Informant: patient Narrative Narrative: Patient presents worsening headache for the past 2 days status post lumbar puncture at [facility]. History of pseudotumor cerebri currently on Diamox 3 times daily. She is followed by neurology. Concussion back in April causing worsening headache symptoms. Decision with her neurologist was for a spinal tap for removal of spinal fluid. She reports 15 cc were removed 2 days ago. States there was difficulty with radiology department performing the procedure. She states this headache is different worsening with sitting up improved with laying down. She tried caffeine yesterday with worsening symptoms. Denies nausea or vomiting. Denies fevers. She attempted to call the facility have not received a call back. She presents here for evaluation. Her last spinal tap was 5 years ago. Prior similar symptoms: No PFSH PFSH Medical History Brain tumor Increased intracranial pressure Home Medications acetazolamide [Diamox] 250 mg PO TID 04/25/21 [History Last Taken Unknown] Allergy/AdvReac Type Severity Reaction Status Date / Time DUST Allergy Shortness Uncoded 04/25/21 14:18 of breath Surgical History Hx of dilation and curettage Social History Smoking Status: Never smoker ROS ROS ED Constitutional Constitutional ED: Denies chills, fever(s) or sweats Eyes Eyes: Denies change in vision ENT ENT ED: Denies dysphagia or sore throat Cardiovascular Cardiovascular: Denies chest pain, leg edema, palpitations or racing heartbeat Respiratory/Chest Respiratory/Chest: Denies cough, dyspnea or dyspnea on exertion Gastrointestinal Gastrointestinal: Denies abdominal pain, diarrhea, nausea or vomiting Genitourinary Genitourinary ED: Denies dysuria, hematuria or urinary frequency Musculoskeletal Musculoskeletal: Denies back pain, extremity pain or neck pain Integumentary Denies rash or wounds Neurologic Neurologic: Reports headache(s); Denies paresthesias or weakness EXAM Physical Exam Const Vital Signs: 05/20/21 21:58 05/20/21 22:24 Temperature 97.5 F L 97.5 F L Temperature Source Temporal Temporal Pulse Rate 86 86 Respiratory Rate 18 18 Blood Pressure 113/96 H 113/96 H Blood Pressure Mean 101 101 Pulse Ox 100 100 Oxygen Delivery Method Room Air Room Air Positive well nourished and well developed General Appearance ED: well developed and NAD HEENT Reports moist mucous membranes normocephalic and atraumatic Eyes PERRL, EOMs intact bilaterally and conjunctivae normal General Eye ED: Yes normal appearance of both eyes Neck no lymphadenopathy and supple Neck Narrative: No meningismus General: Negative for tenderness Chest Wall Chest: Negative for tenderness Resp normal respiratory effort and normal air movement Effort and Inspection: symmetric chest movement; Negative for respiratory distress Cardio regular rate, regular rhythm and no murmurs Peripheral Pulses: pulses 2+ throughout GI normal to inspection, nondistended, normoactive bowel sounds and non-tender Palpation: Negative for guarding or rebound tenderness present Back/Spine no CVA tenderness and no thoracic nor lumbar tenderness Back/Spine Narrative: Lower midline lumbar, 2 puncture sites with scabbing, no erythema, no drainage. Nontender to palpation. Extremity normal to inspection General Extremety ED: Negative for edema or tenderness General Extremity: Negative for edema Neuro oriented x3 and no sensory deficits noted Sensorium / Orientation: awake and alert Skin no rashes or lesions noted and no wounds MDM MDM MDM Narrative Medical decision making narrative: Patient nontoxic no meningismus. History worsening symptoms from sitting up status post lumbar puncture. This consistent with a spinal headache. She declines any IV caffeine due to worsening headache symptoms from caffeine at home. Discussed definitive treatment history with blood patch. I did discuss with anesthesia on-call, unable to perform this tonight in the emergency department. Patient was okay returning tomorrow to be performed as an outpatient. Patient's phone numbers taken down by anesthesia, she will return at 10 AM tomorrow to registration to be seen as an outpatient for blood patch procedure. She will remain more flat at home due to improving symptoms from this. Patient understands and agrees with this plan. Patient is being discharged under pandemic conditions under declared global, national and state disaster activation, with limited medical resources. Patient and community understands this. Results discussed in layman's terms to the patient satisfaction. All questions answered in layman's terms. Patient understands importance of follow-up care as directed. Patient has been instructed to return to the ED immediately if new symptoms, problems, or questions occur. We mutually agree with the plan of disposition. The patient understand that they may call or return with any questions or concerns at any time. Discharge Plan Triage Chief Complaint: Headache ED Provider: Arie Mendez Dx/Rx/DC Orders Clinical Impression: Spinal headache, Pseudotumor cerebri Instructions: ED Headache After Spinal Tap ... Prescriptions: No Action acetazolamide [Diamox] 250 mg Tablet 250 mg PO TID RF: 0 Primary Care Provider: Care Physician,No Primary Referrals: Care Physician,No Primary [Primary Care Provider] - Activity Restrictions/Additional Instructions: Return tomorrow at 10 AM to registration department, let them know here to see anesthesia for blood patch for your spinal headache. Will likely receive a call also from anesthesia. Disposition Disposition: Home, Self Care Discharge Date/Time: 05/20/21 23:00
== END 2021-05-20 23:00 | disposition home or self-care (01) ==
LOC: ED 22:54
PROVIDERS: Emergency Provider Emergency Medicine; Visit Provider Emergency Medicine
DX: G97.1 Other reaction to spinal and lumbar puncture (principal); G93.2 Benign intracranial hypertension; Z79.899 Other long term (current) drug therapy
CPT/HCPCS: 99282

== ENCOUNTER 2021-12-13 17:40 | Emergency (ER) | payer SELFPAY ==
[2021-12-13 17:41] VITALS: PULSE 100; RESP 16; TEMP 35.9; O2SAT 97; BMI 41.1
--- NOTE | 2021-12-13 18:05 | EDS_ITS ---
HPI History of Present Illness Chief Complaint: Foreign Body Detail of Chief Complaint: Choking and feels like there is something in the back of my throat Informant: patient Onset/Context/Timing Onset: Days Context: Gradual Onset Timing: Continuous Current Severity: Mild Maximum Severity: Mild Narrative Narrative: 36-year-old female past medical history of pseudotumor and a pineal brain tumor. Said she had a choking spell when she was eating rice on Tuesday or Tuesday and since that time does feel like there is something in the back of her throat or that she is still choking. She denies any trouble breathing or swallowing otherwise. She denies any fever or sore throat. She had a virtual visit and she thinks that they just blew off her symptoms. Prior similar symptoms: No Recent Illness/Hospitalization: No PFSH PFSH Medical History Brain tumor Increased intracranial pressure Home Medications acetazolamide 250 mg tablet 250 mg PO TID 04/25/21 [History Last Taken Unknown] prednisone 20 mg tablet 40 mg PO DAILY 4 days #8 tabs 12/13/21 [Rx Last Taken Unknown] Allergy/AdvReac Type Severity Reaction Status Date / Time house dust mite Allergy Severe Shortness Verified 12/13/21 17:45 of breath Surgical History Hx of dilation and curettage Social History Smoking Status: Never smoker ROS ROS ED ROS Narrative Denies. Review of Systems ROS Unobtainable: Denies due to encephalopathy Constitutional Constitutional ED: Denies chills or fever(s) Eyes Eyes: Denies blurry vision ENT ENT ED: Denies ear pain or sore throat Cardiovascular Cardiovascular: Denies chest pain Respiratory/Chest Respiratory/Chest: Denies cough Gastrointestinal Gastrointestinal: Denies abdominal pain Genitourinary Genitourinary ED: Denies dysuria Musculoskeletal Musculoskeletal: Denies arthralgias Integumentary Denies abscess Neurologic Neurologic: Denies headache(s) Psychiatric Psychiatric: Denies anxiety Endocrine Endocrinology: Denies cold intolerance Hematologic/Lymphatic Hematologic/Lymphatic: Reports none Allergic/Immunologic Allergic/Immunologic ED: Denies mouth swelling, tongue swelling or urticaria EXAM Physical Exam Narrative Exam Narrative: Well-appearing female no acute distress. Vital signs stable afebrile. Pulse ox 97% on room air no signs hypoxia. H EENT exam moist Riis membranes. Normal tongue. Lips are not swollen. Posterior pharynx normal tonsils. Not large. No erythema. No exudate. No peritonsillar abscess. 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 Neck nontender no lymphadenopathy. Lungs clear to auscultation. Bilaterally. No rales rhonchi or wheezing. Heart regular rhythm no murmur. Abdomen soft nontender. Otherwise exam unremarkable. I gave the patient a glass of water she drank it without any difficulty. Const Vital Signs: 12/13/21 17:41 Temperature 96.7 F L Temperature Source Temporal Pulse Rate 100 Respiratory Rate 16 Pulse Ox 97 Oxygen Delivery Method Room Air Positive well nourished, well developed and obese; Negative for cachectic, contractures or unkempt General Appearance ED: well developed; Negative for unkempt, cachectic or contractures Nutritional Appearance: obese; Negative for cachectic HEENT Reports moist mucous membranes; Denies dry mucous membranes HEENT Narrative: Posterior uvula mildly enlarged. No trouble swallowing or breathing. Drink water without any difficulty. No stridor or drooling. Tongue and lips unremarkable. Negative for trauma or tenderness Mouth ED: No dry mucous membranes Mouth: No dry mucous membranes Eyes PERRL and EOMs intact bilaterally General Eye ED: Negative for pale conjunctiva Neck no lymphadenopathy, supple and no JVD General: Negative for tenderness Lymph Lymphatic: Negative for other Chest Wall inspection of chest normal and palpation of chest normal Resp normal respiratory effort and clear to auscultation bilaterally Effort and Inspection: Negative for retractions Auscultation: Negative for rales or rhonchi Cardio regular rate, regular rhythm, S1 normal heart sound, S2 normal heart sound and no murmurs Palpation: Negative for palpable S3 Rate: Negative for bradycardia Rhythm: Negative for abnormal rhythm GI normal to inspection, nondistended, normoactive bowel sounds, non-tender, non- distended and no masses Inspection: Negative for abdominal distention Auscultation: normoactive bowel sounds Palpation: soft; Negative for tender or guarding Bladder / Kidney Exam: No other Back/Spine no CVA tenderness General Back: Negative for CVA tenderness Cervical Spine: Negative for cervical spine tenderness Thoracic Spine / Upper Back: Negative for thoracic spinal tenderness Lumbar Spine / Lower Back: Negative for lumbar spinal tenderness Extremity normal to inspection General Extremety ED: Negative for edema or tenderness General Extremity: Negative for edema Neuro oriented x3 and CN's II-XII intact bilaterally Sensorium / Orientation: alert; Negative for orientation impaired, lethargic or stuporous Motor Exam: strength 5/5 throughout Psych mental status grossly normal Appearance: Negative for unkempt Attitude: No agitated Mood & Affect: Negative for depressed or anxious Skin no rashes or lesions noted, no wounds and skin turgor normal General Skin Exam: Negative for elasticity normal Lesions: No lesion noted Rashes: No rashes noted Trauma: Negative for abrasion Wounds: Negative for wounds noted MDM MDM MDM Narrative Medical decision making narrative: Patient with mild swelling of her uvula its been there for days. She is having no trouble swallowing water or breathing. She will be placed on prednisone for the next 5 days first dose given here. Follow-up if not improving. Discharge Plan Triage Chief Complaint: Foreign Body ED Provider: Darien Ku Dx/Rx/DC Orders Clinical Impression: Choking, Quincke syndrome Instructions: ED Angioedema Prescriptions: New prednisone 20 mg tablet 40 mg PO DAILY 4 Days Qty: 8 0RF No Action acetazolamide [Diamox] 250 mg Tablet 250 mg PO TID Primary Care Provider: Care Physician,Gail Primary Referrals: Care Physician,No Primary [Primary Care Provider] - 1 Week if not improving Activity Restrictions/Additional Instructions: The back your throat your uvula is swollen that is what is causing you to feel like you are choking on things. That is either from allergic reaction or a virus. We placed on prednisone 40 mg a day for the next 4 days starting tomorrow. We will give you a dose here before you go start the medication tomorrow. Avoid hot or spicy foods irritate this worse. This should progressively get better if not follow-up to have it reevaluated. If you still feel like there is something stuck back there they can eventually do a scope but this should clear up and he most likely will not need that. Disposition Disposition: Home, Self Care
[2021-12-13] MEDS: predniSONE 20 MG Tablet 60 MG PO (18:10)
== END 2021-12-13 18:13 | disposition home or self-care (01) ==
LOC: ED 18:09
PROVIDERS: Emergency Provider Emergency Medicine; Visit Provider Emergency Medicine
DX: T78.3XXA Angioneurotic edema, initial encounter (principal); Z68.41 Body mass index [BMI] 40.0-44.9, adult; D35.4 Benign neoplasm of pineal gland; T17.928A Food in respiratory tract, part unspecified causing other injury, initial encounter; G93.2 Benign intracranial hypertension; E66.9 Obesity, unspecified; X58.XXXA Exposure to other specified factors, initial encounter
CPT/HCPCS: 99282

== ENCOUNTER 2021-12-17 18:08 | Emergency (ER) | payer SELFPAY ==
[2021-12-17 18:10] VITALS: BP 121/84; PULSE 84; RESP 16; TEMP 36.2; O2SAT 100; BMI 41.1
--- NOTE | 2021-12-17 18:53 | RAD_ITS ---
STUDY: X-RAY CHEST REASON FOR EXAM: Female, 36 years old. CHEST PAIN cough TECHNIQUE: XR Chest 1 View COMPARISON: None FINDINGS: There is no demonstrated pleural abnormality. Normal size heart. Normal mediastinum and lamin. Normal visualized pulmonary arteries. Normal visualized aortic arch and descending thoracic aorta. Normal visualized thoracic spine. Normal visualized ribs, clavicles, and shoulders. There is no demonstrated abnormality of the visualized soft tissue structures of the upper abdomen. RAD/Chest 1 View (Portable) IMPRESSION: There are no acute findings. Electronically Signed: Ranjit Thurston MD at 19:07 EDT ,
--- NOTE | 2021-12-17 19:29 | EX.ED.DYSGE1 ---
HPI History of Present Illness Chief Complaint: Other, Pain/Inj Detail of Chief Complaint: Difficulty swallowing and choking Informant: patient Narrative Narrative: Patient presents to the emergency department with complaint of difficulty swallowing. Patient states that she is had intermittent choking episodes. About a week ago she had a choking episode that caused her a lot of discomfort. Patient states she had been on a cayenne pepper type diet and she thinks that may have burned her throat. She was seen by her primary care physician who ordered a barium swallow which was done yesterday. Patient feels that when she tries to swallow things do not go down like they should and sometimes tend to come back up. Patient at times feels short of breath and feels like she is wheezing. Patient was wondering if she was aspirating. Patient has not had any fevers. Prior similar symptoms: No PFSH PFSH Medical History Brain tumor Increased intracranial pressure Home Medications prednisone 20 mg tablet 40 mg PO DAILY 4 days #8 tabs 12/13/21 [Rx Last Taken Unknown] albuterol sulfate 90 mcg/actuation aerosol inhaler (Ventolin HFA) 2 puff inhalation Q4H PRN PRN Wheezing ##1 12/17/21 [Rx Last Taken Unknown] lorazepam 1 mg tablet (Ativan) 1 mg PO TID PRN anxiety #10 tabs 12/17/21 [Rx Last Taken Unknown] Allergy/AdvReac Type Severity Reaction Status Date / Time house dust mite Allergy Severe Shortness Verified 12/17/21 18:13 of breath Surgical History Hx of dilation and curettage Social History Smoking Status: Never smoker ROS ROS ED Review of Systems ROS Unobtainable: other Constitutional Constitutional ED: Reports lethargy; Denies chills, fever(s), sweats or weight loss Eyes Eyes: Denies blurry vision, change in vision or diplopia ENT ENT ED: Denies rhinorrhea or sore throat Cardiovascular Cardiovascular: Denies chest pain, orthopnea or racing heartbeat Respiratory/Chest Respiratory/Chest: Reports dyspnea and dyspnea on exertion; Denies cough, orthopnea or sputum Gastrointestinal Gastrointestinal: Reports other Details: Difficulty swallowing ; Denies abdominal pain, diarrhea, nausea or vomiting Genitourinary Genitourinary ED: Denies dysuria, hematuria or urinary frequency Musculoskeletal Musculoskeletal: Denies arthralgias, back pain, myalgias or neck pain Integumentary Denies abscess, Abrasions or rash Neurologic Neurologic: Denies headache(s) or weakness Psychiatric Psychiatric: Denies anxiety, depression or suicidal thoughts Endocrine Endocrinology: Denies polydipsia, polyphagia or polyuria Hematologic/Lymphatic Hematologic/Lymphatic: Denies easy bleeding, easy bruising or lymphadenopathy Allergic/Immunologic Allergic/Immunologic ED: Denies mouth swelling, tongue swelling or urticaria EXAM Physical Exam Const Vital Signs: 12/17/21 18:10 12/17/21 19:05 Temperature 97.2 F L Temperature Source Temporal Pulse Rate 84 Respiratory Rate 16 Respiratory Pattern Normal Blood Pressure 121/84 H Blood Pressure Mean 96 Pulse Ox 100 Oxygen Delivery Method Room Air Positive well nourished and well developed General Appearance ED: well developed and NAD HEENT Reports TM's clear and moist mucous membranes normocephalic and atraumatic; Negative for trauma or tenderness Tympanic Membrane ED: Yes TM's clear Eyes PERRL and EOMs intact bilaterally General Eye ED: Negative for pale conjunctiva or scleral icterus Neck no lymphadenopathy, supple and no JVD General: Negative for tenderness Chest Wall inspection of chest normal and palpation of chest normal Chest: Negative for tenderness Resp normal respiratory effort and clear to auscultation bilaterally Effort and Inspection: Negative for respiratory distress or pain with movement Auscultation: Negative for rhonchi, wheezes or diminished lung sounds Cardio regular rate, regular rhythm, S1 normal heart sound, S2 normal heart sound and no murmurs Peripheral Pulses: pulses 2+ throughout GI normal to inspection, nondistended, normoactive bowel sounds, soft to palpation, non-tender, non-distended and no masses Back/Spine no CVA tenderness and no thoracic nor lumbar tenderness Extremity normal to inspection General Extremety ED: Negative for edema General Extremity: Negative for edema Neuro oriented x3, CN's II-XII intact bilaterally, no sensory deficits noted and gait normal Sensorium / Orientation: awake, alert, oriented to person, oriented to place and oriented to time Motor Exam: strength 5/5 throughout and strength abnormal Psych mental status grossly normal Skin no rashes or lesions noted and no wounds MDM MDM MDM Narrative Medical decision making narrative: Patient had a chest x-ray which was normal. We do not have GI on-call today. I will start patient on an inhaler as needed for wheezing. There is no evidence of aspiration on her barium study evaluation which she showed me the results of. Patient does not have a history of anxiety but I will write her a prescription for Ativan to see if that helps with some of the discomfort. The barium swallow did show some laryngal pharyngeal reflux. Patient will be given referral to GI for follow-up. Radiography Diagnostic Testing: Clinical Impression(s) from Imaging Studies Chest X-Ray 12/17/21 18:53 IMPRESSION: There are no acute findings. Electronically Signed: Ranjit Thurston MD at 19:07 EDT Reading Location ID and State: [facility] / [place] , Service support , Discharge Plan Triage Chief Complaint: Other, Pain/Inj ED Provider: Carlos Benavides Dx/Rx/DC Orders Clinical Impression: Choking, Acute dyspnea Instructions: ED Dyspnea, ED Dysphagia (Adult) Prescriptions: New albuterol sulfate [Ventolin HFA] 90 mcg/actuation HFA aerosol inhaler 2 puff inhalation Q4H PRN PRN (Reason: Wheezing) Qty: 1 0RF lorazepam [Ativan] 1 mg tablet 1 mg PO TID PRN (Reason: anxiety) Qty: 10 0RF No Action prednisone 20 mg tablet 40 mg PO DAILY 4 Days Qty: 8 0RF Primary Care Provider: Care Physician,No Primary Referrals: Amado Nichole DO [Med Staff - Active Staff] - 3-5 Days Care Physician,No Primary [Primary Care Provider] - Disposition Disposition: Home, Self Care
== END 2021-12-17 19:41 | disposition home or self-care (01) ==
PROVIDERS: Emergency Provider Emergency Medicine; Visit Provider Emergency Medicine
DX: R13.10 Dysphagia, unspecified (principal); R06.00 Dyspnea, unspecified
CPT/HCPCS: 71045; 99282

== ENCOUNTER 2022-01-18 13:22 | Emergency (ER) | payer SELFPAY ==
[2022-01-18 13:23] VITALS: BP 140/91; PULSE 90; RESP 16; TEMP 36.1; O2SAT 98; BMI 43.1
--- NOTE | 2022-01-18 13:42 | ED.RN ---
PT LWBS [id number]
== END 2022-01-18 13:47 | disposition left against medical advice (07) ==
PROVIDERS: Emergency Provider Emergency Medicine; Visit Provider Emergency Medicine
DX: Z53.21 Procedure and treatment not carried out due to patient leaving prior to being seen by health care provider (principal)